=== PATIENT | female | born 1950 | race Caucasian/White ===

== ENCOUNTER 2018-06-27 18:46 | Emergency (ER) | payer MEDICARE, OTHER ==
[~2018-06-27 18:46] MED LIST: CEPH-13 PO; CHOL10005 PO; DIPH-616 PO; PRED20TA6 PO; VALA500T66 PO
--- NOTE | 2018-06-27 18:54 | ER Report ---
History and Physical Time Seen By MD: 18:54 Hx. of Stated Complaint: pt cutting open chicken, sliced finger with knife. HPI/ROS CHIEF COMPLAINT: Laceration HISTORY OF PRESENT ILLNESS: 67-year-old female patient presents to the emergency room with complaint of laceration to the left fourth finger. Patient states that she was cutting chicken for dinner. She states that the knife slipped and cut right across her left fourth DIP joint. Patient states she is unsure when her last tetanus shot was. She states she did apply pressure to the wound and was able to get the bleeding stopped, however when she removed the paper towel started bleeding again. She states she is not able to get the bleeding stopped and especially came into the emergency room for evaluation. Patient denies any numbness or tingling, she denies any weakness in the finger. Allergies: Coded Allergies: Penicillins (Verified Allergy, Severe, ANAPHYLAXIS, 10/18/16) Sulfa (Sulfonamide Antibiotics) (Verified Allergy, Mild, HIVES, 10/18/16) cephalexin (Verified Allergy, Unknown, 10/18/16) clindamycin (Verified Allergy, Unknown, 10/18/16) Home Meds Reported Medications Valacyclovir Hcl (VALTREX) 500 Mg Tablet, 500 MG PO DAILY PRN for COLD SORES 02/26/16 Cholecalciferol (Vitamin D3) (VITAMIN D3) 1,000 Unit Tablet, 2000 UNIT PO DAILY, TAB 02/26/16 Past Medical/Surgical History Patient has a past medical history of arthritis, alcohol use. Patient has a surgical history of a mole removed from her chin, age spots removed, cyst removed from her bladder. Patient has a family medical history of cancer, CAD. Reviewed Nurses Notes: Yes Hx Smoking: No Smoking Status: Never Smoker Exposure to Second Hand Smoke?: Yes Hx Substance Use Disorder: No Hx Alcohol Use: Yes (OCC) Constitutional Vital Sign - Last 24 Hours 06/27/18 06/27/18 06/27/18 06/27/18 18:50 19:01 19:16 19:31 Temp 98.0 Pulse 86 77 82 82 Resp 18 B/P (MAP) 149/90 Pulse Ox 92 92 92 O2 Delivery Room Air 06/27/18 06/27/18 06/27/18 06/27/18 20:01 20:16 20:31 20:34 Pulse 69 74 71 B/P (MAP) 124/83 (97) Pulse Ox 92 92 92 Physical Exam General appearance: Alert no distress. Respiratory: Chest is non tender, lungs are clear to auscultation. Cardiac: Regular rate and rhythm. Skin: Patient has a 0.5 cm [place] that was taken out of the DIP joint of the left fourth finger. He is bleeding significantly. When I remove the dressing and does look as if has an arterial bleed associated with it. DIFFERENTIAL DIAGNOSIS: After history and physical exam differential diagnosis was considered for laceration. Medical Decision Making ED Course/Re-evaluation ED Course Patient was admitted in exam room, history and physical were obtained. Differential diagnoses were considered. On examination patient has a 0.5 cm skin avulsion to the left fourth DIP joint. Patient has good strength with movement. Finger had a digital block performed using 0.5% Marcaine and 1% lidocaine. When the finger was adequately anesthetized I did have the tech clean it. That was cleaned I did go ahead and apply a turnicot. I then cauterized the wound. I left a turnicot on wall I cleaned up the blood off the hand. I then removed the turnicot and monitor. There is no bleeding noted. I left the wound exposed for 5 minutes and reevaluated. There is no bleeding at that time. At that time it was decided to go ahead and place a dressing. We placed bacitracin, Telfa and wrap the finger. Patient tolerated procedure well. We will go ahead and discharge her home. She is follow-up with her primary care provider with any concerns. She is to monitor for signs of infection. She is to return to emergency room if conditi on worsens. Patient verbalized understanding and agreement with plan. Decision to Disposition Date: Jun 27, 2018 Decision to Disposition Time: 20:28 Depart Departure Latest Vital Signs Vital Signs Date Time Temp Pulse Resp B/P (MAP) Pulse Ox O2 Delivery O2 Flow Rate FiO2 06/27/18 20:34 124/83 (97) 06/27/18 20:31 71 92 06/27/18 18:50 98.0 18 Room Air Impression: Primary Impression: Avulsion of skin of finger Condition: Improved Disposition: HOME OR SELF-CARE Referrals: CHRISTOPHE LEONARDO MD (PCP) Patient Instructions: Finger Laceration (ED) Additional Instructions: Limit activity by pain. Change the dressing as needed. Take Tylenol or Ibuprofen as needed for pain. Monitor for signs of infection; redness, swelling, heat, discharge, red streaking or increased pain. Return to the ER with any concerns. Follow up with your primary care provider in the next 5-7 days. Problem Qualifiers Primary Impression: Avulsion of skin of finger Encounter type: initial encounter Qualified Codes: S61.209A - Unspecified open wound of unspecified finger without damage to nail, initial encounter CAROLE CASTANO Jun 27, 2018 18:54
[2018-06-27] MEDS ORDERED: DIPHTH/TETANUS/ACEL. PERTUSSIS IM ONLY ONE (19:00)
[2018-06-27 20:34] VITALS: BP 124/83
== END 2018-06-27 20:36 | disposition home or self-care (01) ==
LOC: ER 19:08
DX: S61.205A Unspecified open wound of left ring finger without damage to nail, initial encounter (principal)
CPT/HCPCS: 90471; 90715; 99283

== ENCOUNTER 2018-07-03 12:58 | Emergency (ER) | payer MEDICARE, OTHER ==
--- NOTE | 2018-07-03 13:07 | ER Report ---
History and Physical Time Seen By MD: 13:06 HPI/ROS CHIEF COMPLAINT: Wound check HISTORY OF PRESENT ILLNESS: Patient is a 67-year-old female who sustained an avulsion to the top of her 3rd finger of her left hand. Wound was irrigated and treated with topical antibiotics patient has some concern as there is some increasing redness and increasing pain to the area there is no swelling to the finger but she was concerned of possible infection. Allergies: Coded Allergies: Penicillins (Verified Allergy, Severe, ANAPHYLAXIS, 10/18/16) Sulfa (Sulfonamide Antibiotics) (Verified Allergy, Mild, HIVES, 10/18/16) cephalexin (Verified Allergy, Unknown, 10/18/16) clindamycin (Verified Allergy, Unknown, 10/18/16) Home Meds Active Scripts Vancomycin Hcl (VANCOCIN HCL) 125 Mg Cap, 125 MG PO QID for 7 Days, #28 CAP 0 Refills Prov:NIKI OSEI MD 07/03/18 Reported Medications Valacyclovir Hcl (VALTREX) 500 Mg Tablet, 500 MG PO DAILY PRN for COLD SORES 02/26/16 Cholecalciferol (Vitamin D3) (VITAMIN D3) 1,000 Unit Tablet, 2000 UNIT PO DAILY, TAB 02/26/16 Past Medical/Surgical History Noncontributory towards this chief complaint Hx Smoking: No Smoking Status: Never Smoker Exposure to Second Hand Smoke?: Yes Hx Substance Use Disorder: No Hx Alcohol Use: Yes (OCC) Constitutional Vital Sign - Last 24 Hours 07/03/18 07/03/18 13:10 13:59 Temp 97.1 97.7 Pulse 64 67 Resp 16 16 B/P (MAP) 134/96 119/79 (92) Pulse Ox 93 92 O2 Delivery Room Air Room Air Physical Exam Examination of the left middle finger shows a 0.5 cm avulsion with granulation tissue. There is some surrounding erythema there is no previous of them swelling patient is able to flex the finger. There is no pain on passive extension. Medical Decision Making ED Course/Re-evaluation ED Course Plan at this time will be oral vancomycin based on the patient's allergy profile. We'll place the patient on this for the next 7 days and have her return if symptoms worsen. Patient tolerated vancomycin without difficulty. Decision to Disposition Date: Jul 03, 2018 Decision to Disposition Time: 13:53 Depart Departure Latest Vital Signs Vital Signs Date Time Temp Pulse Resp B/P (MAP) Pulse Ox O2 Delivery O2 Flow Rate FiO2 07/03/18 13:59 97.7 67 16 119/79 (92) 92 Room Air Impression: Primary Impression: Wound infection Condition: Improved Disposition: HOME OR SELF-CARE Referrals: CHRISTOPHE LEONARDO MD (PCP) New Scripts Vancomycin Hcl (VANCOCIN HCL) 125 Mg Cap 125 MG PO QID for 7 Days, #28 CAP 0 Refills Prov: NIKI OSEI MD 07/03/18 Patient Instructions: Cellulitis (DC) NIKI OSEI MD Jul 03, 2018 13:07
[2018-07-03] MEDS ORDERED: VANCOMYCIN HCL 125 MG CAPSULE PO SCH (13:10)
[2018-07-03] MEDS ORDERED: VANC125C10 PO (13:18)
[2018-07-03] MEDS ORDERED: VANCOMYCIN HCL 125 MG CAPSULE PO ONE (13:30)
[2018-07-03 13:59] VITALS: BP 119/79
== END 2018-07-03 14:00 | disposition home or self-care (01) ==
LOC: ER 13:03
DX: L08.89 Other specified local infections of the skin and subcutaneous tissue (principal)
CPT/HCPCS: 99283

== ENCOUNTER → 2018-09-09 | Outpatient (CLI) | payer MEDICARE, OTHER ==
[~2018-09-09] MED LIST changes: +VANC125C10 PO
--- NOTE | 2018-09-09 18:34 | RADIOLOGY IMAGING REPORT ---
FACILITY: [facility] PATIENT NAME: Alida Munson : 1950 MR: [id number] V: [id number] EXAM DATE: ORDERING PHYSICIAN: CHRISTOPHE LEONARDO [place]CHNOLOG[place] [facility] [place] : 1950 Visit/Account:[id number] Date of Sevice: 09/09/2018 DEXA Scan Clinical history: Screening. Comparison: DEXA scan from 07/15/2016. LUMBAR SPINE: The bone mineral density (BMD) measured from L1-L4 correlates with a Z-score 1.1 and a T-score of -0 .2 which is Normal as defined by the World Health Organization. The corresponding risk of fracture i n the lumbar spine is Not increased compared with a young adult reference population. This value has increased by 1.3 % since the prior study. More than 5% change is considered significant. HIP: Bone mineral density (BMD) measured in the Left femoral neck region correlates with a Z-score 0 and a T-score of -1.5 which is consistent with osteopenia as defined by the World Health Organization. The corresponding risk of fracture in the hip is increased 3 times compared with a young adult refere [facility] population. The total hip value has increased by 1.7 % since the prior study. More than 5% nuñez e is considered significant. Bone mineral density (BMD) measured in the Femoral Neck region measures 0.834 g/cm2. IMPRESSION: 1. Lumbar spine: Normal. There has been No significant change in the bone mineral density since the previous exam. 2. Left Hip: Consistent with osteopenia. There has been No significant change in the bone mineral d ensity of the total hip since the previous exam. 3. Femoral Neck: Bone Mineral Density is 0.834 g/cm2 The next DEXA scan of this patient should include the following sites: L1-L4 and the left hip. FRAX? WHO Fracture Risk Assessment Tool link: <http://www.shef.ac.uk/FRAX/tool.jsp?locationValue=9> PLEASE NOTE: 1) The World Health Organization defines low BMD as follows: T-score Normal > -1 Osteopenia < -1 and > -2.5 Osteoporosis < -2.5 without fractures Established osteoporosis < -2.5 with fractures 2) In general, you may wish to consider: Diagnosis Treatment Follow-up DEXA Normal BMD Prevention 2-3 years Osteopenia Prevention/therapy 1-2 years Osteoporosis Therapy Yearly 3) Fracture risk estimated from the T-score is more accurate for vertebral fractures (often spontane ous) than for hip fractures. Report Dictated By: Rodo Cheatham MD at 09/09/2018 6:26 PM Report E-Signed By: Rodo Cheatham MD at 09/09/2018 6:30 PM WSN:[id number]
--- NOTE | 2018-09-13 10:17 | RADIOLOGY IMAGING REPORT ---
FACILITY: [facility] [place] PATIENT NAME: MARLA GASTON : [id number] MR: [id number] V: [id number] EXAM DATE: [id number] ORDERING PHYSICIAN: CHRISTOPHE LEONARDO TECHNOLOGIST: Viviane Dalton PROCEDURE: BILATERAL DIGITAL SCREENING MAMMOGRAM WITH CAD ASSISTED INTERPRETATION & 3D TOMOSYNTHESIS REASON FOR STUDY: Screening. COMPARISON: Priors. VIEWS OBTAINED: 2D & 3D full field CC & MLO. BREAST DENSITY: Scattered fibroglandular densities are present in both breasts. MAMMOGRAM FINDINGS: A focal asymmetry is present in the superior Right breast, essentially unchanged when compared to previous. A few benign appearing calcifications are scattered bilaterally. IMPRESSION: BIRADS 2: Benign finding. DIAGNOSTIC CATEGORY 2--BENIGN FINDING. RECOMMENDATIONS: ROUTINE MAMMOGRAM AND CLINICAL EVALUATION IN 1 YEAR. Dictated by: Bong Pierce M.D. on 09/12/2018 at 14:56 Transcribed by: HEIDE on 09/12/2018 at 15:06 Approved by: Sobeida Kimbrough M.D. on 09/13/2018 at 10:16 [facility]
== END ==
LOC: MAMO 02:29
PROVIDERS: ATTEND Family Medicine
DX: Z12.31 Encounter for screening mammogram for malignant neoplasm of breast (principal); Z13.820 Encounter for screening for osteoporosis; Z80.3 Family history of malignant neoplasm of breast
CPT/HCPCS: 77063; 77067; 77080